=== PATIENT | female | born 1970 | race Caucasian/White ===

== ENCOUNTER → 2016-04-14 | Outpatient (CLI) | payer OTHER ==
[~2016-04-14] MED LIST: ALBUTEROL1.25 MG/3 IH; AMBIEN12.5 MG PO; EFFEXOR37.5 MG PO; HYDROCODON-ACE1 EAC7 PO; KLONOPIN0.25 MG/TA PO; LEVAQUIN PO; LOVENOX100 MG/ML INJ; MOTRIN400 M1 PO; PRISTIQ50 MG PO; ROBAXIN 750750 MG PO; SYMBICORT INH; TRAZODONE PO; VITAMIN D; ZOCOR PO
== END | disposition home or self-care (01) ==
LOC: CSSDAY 09:52
PROC: 3C1ZX8Z Irrigation of Indwelling Device using Irrigating Substance, External Approach (ICD-10-PCS; principal; 2016-04-14)
DX: Z45.2 Encounter for adjustment and management of vascular access device (principal)
CPT/HCPCS: G0463; J1642

== ENCOUNTER → 2016-05-18 | Outpatient (CLI) | payer OTHER | END | disposition home or self-care (01) | LOC: CSSDAY 11:09 | PROC: 3C1ZX8Z Irrigation of Indwelling Device using Irrigating Substance, External Approach (ICD-10-PCS; principal; 2016-05-18) | DX: Z45.2 Encounter for adjustment and management of vascular access device (principal) | CPT/HCPCS: G0463; J1642 ==

== ENCOUNTER → 2016-06-21 | Outpatient (CLI) | payer OTHER | END | disposition home or self-care (01) | LOC: CSSDAY 06-17 11:00 | PROC: 3C1ZX8Z Irrigation of Indwelling Device using Irrigating Substance, External Approach (ICD-10-PCS; principal; 2016-06-21) | DX: Z45.2 Encounter for adjustment and management of vascular access device (principal) | CPT/HCPCS: G0463; J1642 ==

== ENCOUNTER → 2016-07-21 | Outpatient (CLI) | payer OTHER | END | disposition home or self-care (01) | LOC: CSSDAY 09:40 | PROC: 3C1ZX8Z Irrigation of Indwelling Device using Irrigating Substance, External Approach (ICD-10-PCS; principal; 2016-07-21) | DX: Z45.2 Encounter for adjustment and management of vascular access device (principal) | CPT/HCPCS: G0463; J1642 ==

== ENCOUNTER → 2016-09-27 | Outpatient (CLI) | payer OTHER | END | disposition home or self-care (01) | LOC: CSSDAY 09:00 | DX: Z45.2 Encounter for adjustment and management of vascular access device (principal) | CPT/HCPCS: G0463; J1642 ==

== ENCOUNTER → 2016-10-14 | Outpatient (CLI) | payer OTHER ==
[2016-10-14 12:40] LABS: BASOPHIL% 0.5 % (0-2.5); EOSINOPHIL# 0.3 X10e3 (0-0.7); EOSINOPHIL% 4.1 % (0.0-7.0); HEMATOCRIT 37.4 % (35.0-45.0); HEMOGLOBIN 12.3 gm/dL (12.0-16.0); LYMPHOCYTE# 1.4 X10e3 (1.0-3.5); LYMPHOCYTE% 20.3 % (17.0-45.0); MEAN CELL VOLUME 84.4 FL (83-96); MEAN CORPUSCULAR HEMOGLOBIN 27.8 PG (28-34); MEAN CORPUSCULAR HGB CONC 32.9 g/dL (30-36); MEAN PLATELET VOLUME 8.9 FL (6.5-11.5); MONOCYTE# 0.3 X10e3 (0-1.0); MONOCYTE% 4.8 % (3.0-12.0); NEUTROPHIL# 4.9 X10e3 (1.5-7.1); NEUTROPHIL% 70.3 % (40-75); PLATELET COUNT 263 X10e3 (140-420); RED BLOOD COUNT 4.43 X10e (3.90-5.30); RED CELL DISTRIBUTION WIDTH 14.6 % (11.0-15.5)
[2016-10-14 12:42] LABS: DIFF IND NO
[2016-10-14 13:12] LABS: ALBUMIN SERUM 3.9 g/dL (3.5-5.0); BILIRUBIN,TOTAL 0.1 mg/dL (0.2-2.0); BUN/CREATININE RATIO 21.42; CALCIUM SERUM 9.3 mg/dL (8.4-10.2); CREATININE SERUM 0.7 mg/dL (0.6-1.4); GLOM FILT RATE Estimated 103.9 mL/min (>60); POTASSIUM 4.4 mmol/L (3.5-5.1); PROTEIN TOTAL SERUM 7.1 g/dL (6.0-8.3)
== END | disposition home or self-care (01) ==
LOC: CLAB 10:55
PROVIDERS: Internal Medicine
DX: K29.50 Unspecified chronic gastritis without bleeding (principal); E78.5 Hyperlipidemia, unspecified; I10 Essential (primary) hypertension; E66.9 Obesity, unspecified; T50.905A Adverse effect of unspecified drugs, medicaments and biological substances, initial encounter
CPT/HCPCS: 80053; 80061; 82306; 83036; 84443; 85025; J1642